=== PATIENT | female | born 2000 | race Caucasian/White ===

== ENCOUNTER → 2019-03-15 16:53 | Outpatient (BNVA) | payer BC, SELFPAY | PROVIDERS: Family Provider Family Medicine; PCP Family Medicine; Visit Provider Nurse Practitioner Family | DX: N92.0 Excessive and frequent menstruation with regular cycle (principal) | CPT/HCPCS: 81025 ==

== ENCOUNTER → 2020-03-10 10:39 | Outpatient (BNVA) | payer BC, SELFPAY | PROVIDERS: Family Provider Family Medicine; PCP Family Medicine; Visit Provider Nurse Practitioner | DX: R11.2 Nausea with vomiting, unspecified (principal); K52.9 Noninfective gastroenteritis and colitis, unspecified | CPT/HCPCS: 87400 ==

== ENCOUNTER → 2021-02-11 17:56 | Outpatient (BNVA) | payer SELFPAY | PROVIDERS: Family Provider Family Medicine; PCP Family Medicine; Visit Provider Nurse Practitioner | DX: R39.9 Unspecified symptoms and signs involving the genitourinary system (principal); R35.0 Frequency of micturition | CPT/HCPCS: 81000; 87086 ==

== ENCOUNTER → 2021-09-17 11:10 | Outpatient (BNVA) | payer OTHER, SELFPAY | PROVIDERS: Family Provider Family Medicine; PCP Family Medicine; Visit Provider Family Medicine | DX: N39.0 Urinary tract infection, site not specified (principal); B37.3 Candidiasis of vulva and vagina | CPT/HCPCS: 81000 ==

== ENCOUNTER → 2022-01-08 12:18 | Outpatient (BNVA) | payer OTHER, SELFPAY | PROVIDERS: Family Provider Family Medicine; Visit Provider Registered Nurse Neonatal Intensive Care | DX: N39.0 Urinary tract infection, site not specified (principal); R30.0 Dysuria; B37.31 Acute candidiasis of vulva and vagina; Z20.2 Contact with and (suspected) exposure to infections with a predominantly sexual mode of transmission | CPT/HCPCS: 81000; 81025; 87491; 87591; 87661 ==

== ENCOUNTER → 2022-02-22 14:34 | Outpatient (BNVA) | payer OTHER, SELFPAY | PROVIDERS: Family Provider Family Medicine; Visit Provider Nurse Practitioner Family | DX: R50.9 Fever, unspecified (principal) | CPT/HCPCS: 87400 ==

== ENCOUNTER → 2022-04-19 11:20 | Outpatient (BNVA) | payer OTHER, MEDICAID, SELFPAY | PROVIDERS: Family Provider Family Medicine; Visit Provider Nurse Practitioner Women's Health | DX: N89.8 Other specified noninflammatory disorders of vagina (principal) | CPT/HCPCS: 87481; 87512; 87798; 87799 ==

== ENCOUNTER → 2022-05-08 13:36 | Outpatient (BNVA) | payer OTHER, MEDICAID, SELFPAY | PROVIDERS: Family Provider Family Medicine; Visit Provider Nurse Practitioner Women's Health | DX: Z32.01 Encounter for pregnancy test, result positive (principal) | CPT/HCPCS: 81025; 84315 ==

== ENCOUNTER → 2022-05-15 14:45 | Outpatient (BNVA) | payer OTHER, MEDICAID, SELFPAY | PROVIDERS: Family Provider Family Medicine; Visit Provider Nurse Practitioner Women's Health | DX: Z34.90 Encounter for supervision of normal pregnancy, unspecified, unspecified trimester (principal) | CPT/HCPCS: 80307; 81000; 84443; 85027; 86592; 86762; 86803; 86850; 86900; 87086; 87340; 87806 ==

== ENCOUNTER → 2022-06-04 10:48 | Outpatient (BNVA) | payer OTHER, MEDICAID, SELFPAY | PROVIDERS: Family Provider Family Medicine; Visit Provider Obstetrics & Gynecology | DX: Z34.90 Encounter for supervision of normal pregnancy, unspecified, unspecified trimester (principal) | CPT/HCPCS: 84315; 87491; 87591; 87661 ==

== ENCOUNTER 2022-06-17 00:22 | Emergency (ER) | payer OTHER, BC, MEDICAID, SELFPAY ==
--- NOTE | 2022-06-17 00:27 | USR_ITS ---
PROCEDURE INFORMATION: Exam: US First Trimester, Transabdominal Exam date and time: 06/17/2022 12:43 AM Age: 21 years old Clinical indication: complicated by abdominal or pelvic pain; Left lower quadrant; First trimester (<14 weeks 0 days); Gestational age or lmp: 12 weeks 1 day; ; Additional info: Abd pain, cramping 12 weeks LABS AND CLINICAL REPORTS: Last menstrual period start date: 03/24/2022 Gestational age (Established): 12 w 1 d Estimated due date (Established): 12/29/2022 TECHNIQUE: Imaging protocol: Real-time transabdominal obstetrical ultrasound of the maternal pelvis and a first trimester , less than 14 weeks 0 days, with image documentation. COMPARISON: US OB <= 14 weeks fetus [facility] 05/22/2022 12:28 PM FINDINGS: GESTATION: Gestation: Intrauterine gestation is visualized. pole is visualized. No yolk sac is visualized. Embryonic/ heart rate: 147 bpm Extra-embryonic membranes/Placenta: Unremarkable. No subchorionic bleed. Amniotic fluid: Amniotic and extra-amniotic fluid are normal for gestational age. BIOMETRY: Gestational age (AUA): 12 w 0 d [place] length: 52.7 mm. EGA (CRL) is 12 w 0 d MATERNAL: Uterus: Uterus measures 9.1 cm x 8.4 cm x 6.8 cm. Cervix: Cervical length measures 3.9 cm. Right ovary/adnexa: Right ovary measures 3.8 cm x 2 cm x 2 cm. Left ovary/adnexa: Left ovary measures 3.2 cm x 2.4 cm x 2.3 cm. Intraperitoneal space: No intraperitoneal free fluid. US/US OB <= 14 weeks fetus [id number] IMPRESSION: Single live intrauterine .
[2022-06-17 00:28] VITALS: BP 121/81; PULSE 76; RESP 18; TEMP 36.6; O2SAT 99
[2022-06-17 01:04] LABS: Add Urine Microscopic? NO; Charge for UA Resulting for Rev
[2022-06-17 01:10] LABS: Bilirubin Urine Neg (Negative); Blood Urine Neg (Negative); Glucose Urine UA Norm (Normal); Ketones Urine Negative (Negative); Leukocyte Esterase Urine Negative (Negative); Nitrate Urine Negative (Negative); Protein Urine Neg (Negative); Urine Appearance Clear (CLEAR); Urine Color Yellow (Yellow); Urobilinogen Urine Norm (Negative); pH Urine 7 (5-7)
[2022-06-17 01:17] LABS: Basophils % 0.4 %; Eosinophils # 0.1 10^3/uL (0.0-0.8); Eosinophils % 1.1 %; Hematocrit 38.5 % (37.0-47.0); Hemoglobin 13.2 g/dL (11.5-15.3); Lymphocytes # 2.3 10^3/uL (0.8-4.8); Lymphocytes % 31.1 %; Mean Corpuscular HGB Conc 34.3 g/dL (30.0-36.0); Mean Corpuscular Hemoglobin 29.8 pg (28.0-34.0); Mean Corpuscular Volume 86.9 fl (81-99); Mean Platelet Volume 10.3 fL (7.4-10.4); Monocytes # 0.5 10^3/uL (0.2-0.9); Monocytes % 6.8 %; Neutrophils # 4.43 10^3/uL (1.8-7.7); Neutrophils % 60.3 %; Nucleated Red Blood Cells % 0 %; Platelet Count 232 10^3/cmm (130-400); Red Blood Count 4.43 10^6/uL (4.1-5.3); Red Cell Distribution Width 11.9 % (12.1-15.1); White Blood Count 7.3 10^3/uL (4.0-10.0)
--- NOTE | 2022-06-17 01:24 | W.ED.ABDPA2 ---
HPI - Abdominal Pain General: Chief Complaint: Abdominal Pain Stated Complaint: 13 wks pregant, abdomen pain/pressure Time Seen by Provider: 06/17/22 00:56 History of Present Illness: 21-year-old female that is approximately 12 to 13 weeks comes in today with some complaints of left pelvic discomfort. Patient denies any bleeding. Patient reports no fever or cough. This is patient's first . Patient does have a history of herpes simplex. Review of Systems General: Reports: 10 or more systems reviewed and unremarkable except in HPI and below Card: Denies: chest pain Resp: Denies: dyspnea GI: Reports: abdominal pain : Denies: vaginal bleeding Musc: Reports: back pain Skin/Breast: Denies: rash Neuro: Denies: headache(s) PFSH ED PFSH: Medical History H/O herpes genitalis (~2014) reports HSV-1 PCR positive in 2014; no outbreak since that time. No pertinent past medical history neghx:htn,dm,thyroid,dvt/pe PCP: none Surgical History No pertinent past surgical history Family History Grandmother Breast cancer maternal Denies family history of Colon cancer Ovarian cancer Diabetes Heart disease Hypertension Uterine cancer Thyroid condition Stroke Hyperchloremia Physical Exam Const: COMMON NORMALS: alert HENMT: COMMON NORMALS: normocephalic HEAD & SCALP: normocephalic Neck/C-Spine: COMMON NORMALS: full ROM Resp: COMMON NORMALS: normal respiratory effort and clear to auscultation bilaterally AUSCULTATION: clear to auscultation bilaterally Cardio: COMMON NORMALS: regular rate and regular rhythm RATE: regular rate RHYTHM: regular rhythm GI: COMMON NORMALS: Soft to palpation PALPATION: Yes Soft to palpation : COMMON NORMALS: Yes no CVA tenderness BLADDER/KIDNEY EXAM: Yes no CVA tenderness Back/Pelvis: COMMON NORMALS: no CVA tenderness Extremity: COMMON NORMALS: full ROM Neuro: SENSORIUM/ORIENTATION: Yes alert Skin: COMMON NORMALS: turgor normal GENERAL SKIN EXAM: turgor normal Course Vital Signs: Vital signs: Vital Signs Temperature 97.9 F 06/17/22 00:28 Pulse Rate 76 06/17/22 00:28 Respiratory Rate 18 06/17/22 00:28 Blood Pressure 121/81 06/17/22 00:28 Pulse Oximetry 99 06/17/22 00:28 Oxygen Delivery Me thod 06/17/22 00:28 MDM - Abdominal Pain Medical Decision Making Patient comes in today for complaints of left pelvic pain. On exam lungs were clear to auscultation abdomen soft with some mild tenderness in the left groin. No redness or inflammation is noted in the groin. Patient moves all extremities well. Vital signs are normal. Differential diagnosis includes not limited to round ligament pain, UTI, ovarian cyst, ovarian torsion. Ultrasound of the pelvis noted a heart rate of 147 with a viable at 12 weeks. Normal blood flow is noted to the ovaries. No ovarian cyst was noted. Patient was a positive. Blood count was normal. Patient is stable and was released to home with recommendations for following up with primary care. Most likely the pain is due to ligament stretching due to and standing for long periods of time. Patient works at a job that requires this. Reviewed these recommendations with patient to include risk and ice or heat. Patient reported understanding agreed to plan. Lab Data 06/17/22 01:10 06/17/22 01:10 Labs/Radiology: Radiology Impressions Ultrasound 06/17/22 00:27 IMPRESSION: Single live intrauterine . Laboratory Results WBC 7.3 10^3/uL (4.0-10.0) 06/17/22 01:10 RBC 4.43 10^6/uL (4.1-5.3) 06/17/22 01:10 Hgb 13.2 g/dL (11.5-15.3) 06/17/22 01:10 Hct 38.5 % (37.0-47.0) 06/17/22 01:10 MCV 86.9 fl (81-99) 06/17/22 01:10 MCH 29.8 pg (28.0-34.0) 06/17/22 01:10 MCHC 34.3 g/dL (30.0-36.0) 06/17/22 01:10 RDW 11.9 % (12.1-15.1) L 06/17/22 01:10 Plt Count 232 10^3/cmm (130-400) 06/17/22 01:10 MPV 10.3 fL (7.4-10.4) 06/17/22 01:10 Neut % (Auto) 60.3 % 06/17/22 01:10 Lymph % (Auto) 31.1 % 06/17/22 01:10 [place] % (Auto) 6.8 % 06/17/22 01:10 Eos % (Auto) 1.1 % 06/17/22 01:10 Baso % (Auto) 0.4 % 06/17/22 01:10 Neut # (Auto) 4.43 10^3/uL (1.8-7.7) 06/17/22 01:10 Lymph # (Auto) 2.3 10^3/uL (0.8-4.8) 06/17/22 01:10 [place] # (Auto) 0.5 10^3/uL (0.2-0.9) 06/17/22 01:10 Eos # (Auto) 0.1 10^3/uL (0.0-0.8) 06/17/22 01:10 Baso # (Auto) 0.0 10^3/uL (0.0-0.1) 06/17/22 01:10 Nucleated RBC % (auto) 0 % 06/17/22 01:10 Nucleated RBCs # 0.0 /100WBC 06/17/22 01:10 Urine Color Yellow (Yellow) 06/17/22 01:00 Urine Appearance Clear (CLEAR) 06/17/22 01:00 Urine pH 7 (5-7) 06/17/22 01:00 Ur Specific [place] 1.010 (1.005-1.030) 06/17/22 01:00 Urine Protein Neg (Negative) 06/17/22 01:00 Urine Glucose (UA) Norm (Normal) 06/17/22 01:00 Urine Ketones Negative (Negative) 06/17/22 01:00 Urine Blood Neg (Negative) 06/17/22 01:00 Urine Nitrate Negative (Negative) 06/17/22 01:00 Urine Bilirubin Neg (Negative) 06/17/22 01:00 Urine Urobilinogen Norm mg/dL (Negative) 06/17/22 01:00 Ur Leukocyte Esterase Negative (Negative) 06/17/22 01:00 Discharge Plan Discharge Condition: Stable Prescriptions: No Action Natavi PNV 13.5 mg iron- 0.5 mg-150 mg capsule PO clobetasol 0.05 % ointment 1 applic topical BID 7 Days Qty: 30 0RF Referrals: Ned Javed MD [Primary Care Provider] - Coding Level of Care Code ED Master Printer for Celena Solo
[2022-06-17 01:47] LABS: Alanine Aminotransferase 10 U/L (0-33); Albumin Level 4.1 g/dL (3.5-5.2); Alkaline Phosphatase 37 U/L (35-105); Anion Gap 16.3 (5-19); Aspartate Amino Transferase 12 U/L (0-32); Blood Urea Nitrogen 4 mg/dL (6-20); Calcium 9.2 mg/dL (8.5-10.5); Carbon Dioxide 22 mmol/L (22-29); Chloride 100 mmol/L (98-107); Globulin 3.3 g/dL (1.3-4.6); Glucose 79 mg/dL (65-115); Osmolality Calculated 276 mOsm/kg (285-295); Potassium 3.3 mmol/L (3.5-5.1); Sodium 135 mmol/L (136-145); Total Bilirubin 0.3 mg/dL (0.15-1.2); Total Protein 7.4 g/dL (6.6-8.7)
[2022-06-17 01:55] VITALS: BP 101/70; PULSE 68; RESP 16; O2SAT 100
== END 2022-06-17 01:57 | disposition home or self-care (01) ==
PROVIDERS: Emergency Provider Nurse Practitioner Family; PCP Obstetrics & Gynecology
DX: O26.891 Other specified pregnancy related conditions, first trimester (principal); R10.2 Pelvic and perineal pain; Z3A.13 13 weeks gestation of pregnancy
CPT/HCPCS: 76801; 80053; 81003; 84702; 85025; 86900; 99284

== ENCOUNTER 2022-11-05 21:15 | Outpatient (CLI) | payer OTHER, BC, SELFPAY ==
[2022-11-05 21:27] VITALS: RESP 17
[2022-11-05 21:29] VITALS: BP 128/80; PULSE 88; TEMP 36
[2022-11-05 21:31] VITALS: BMI 24.4
[2022-11-05 21:53] LABS: Bacteria Urine 1+ /hpf; Bilirubin Urine Neg (Negative); Blood Urine 3+ (Negative); Glucose Urine UA Norm (Normal); Ketones Urine Negative (Negative); Leukocyte Esterase Urine Negative (Negative); Nitrate Urine Negative (Negative); Protein Urine 3+ (Negative); RBC Urine 50-80 /hpf (0-2); Specific Gravity, Urine 1.015 (1.005-1.030); Urine Appearance SL Hazy (CLEAR); Urine Color Yellow (Yellow); Urobilinogen Urine Neg (Negative); pH Urine 6 (5-7)
[2022-11-05 21:54] LABS: Add Urine Culture? Yes
[2022-11-05 22:25] VITALS: BP 128/80; PULSE 88; RESP 15; TEMP 36
== END 2022-11-05 22:25 | disposition home or self-care (01) ==
LOC: OPOB 21:21 → OBGYN 21:26
PROVIDERS: PCP Obstetrics & Gynecology; Visit Provider Family Medicine
DX: O26.899 Other specified pregnancy related conditions, unspecified trimester (principal); R10.9 Unspecified abdominal pain; Z3A.00 Weeks of gestation of pregnancy not specified
CPT/HCPCS: 59025; 81001; 87086; 99211

== ENCOUNTER 2022-12-19 15:32 | Outpatient (CLI) | payer OTHER, MEDICAID, SELFPAY ==
[2022-12-19 15:46] VITALS: BP 124/91; PULSE 71; TEMP 35.8
[2022-12-19 15:51] VITALS: BMI 25.4
[2022-12-19 16:07] VITALS: BP 130/91; PULSE 75
[2022-12-19 16:18] LABS: Actim Prom Negative
== END 2022-12-19 16:35 | disposition home or self-care (01) ==
LOC: OPOB 15:40 → OBGYN 15:43
PROVIDERS: PCP Family Medicine; Visit Provider Family Medicine
DX: O26.899 Other specified pregnancy related conditions, unspecified trimester (principal); Z3A.00 Weeks of gestation of pregnancy not specified; N89.8 Other specified noninflammatory disorders of vagina
CPT/HCPCS: 59025; 83986; 84112; 99211

== ENCOUNTER 2022-12-24 02:30 | Inpatient (IN) | payer OTHER, MEDICAID, SELFPAY ==
[2022-12-24] VITALS (91 sets, daily range): BP systolic 100–150; BP diastolic 61–102; PULSE 62–112; RESP 15–18; TEMP 36–37; O2SAT 92–99; BMI 26.2
[2022-12-24 01:54] LABS: Actim Prom Positive
[2022-12-24 02:53] LABS: Basophils % 0.4 %; Eosinophils # 0.1 10^3/uL (0.0-0.8); Eosinophils % 0.5 %; Hematocrit 34.4 % (36-47); Lymphocytes % 20.2 %; Mean Corpuscular HGB Conc 33.4 g/dL (30-55); Mean Corpuscular Hemoglobin 30.6 pg (27-33); Mean Corpuscular Volume 91.5 fl (85-98); Monocytes # 0.9 10^3/uL (0.2-0.9); Monocytes % 8.4 %; Neutrophils # 7.06 10^3/uL (1.8-7.7); Nucleated Red Blood Cells % 0 %; Platelet Count 200 10^3/cmm (157-399); Red Blood Count 3.76 10^6/uL (3.85-5.65); Red Cell Distribution Width 13.7 % (12.1-15.1); White Blood Count 10.09 10^3/uL (3.29-11.43)
[2022-12-24] MEDS: miSOPROStol 100 mcg tablet 25 MCG VAGINAL (03:19)
--- NOTE | 2022-12-24 08:43 | PM.OPHPUD ---
Labor & Delivery H&P Update Date of Procedure: December 24, 2022 Date H&P Performed: 12/19/22 Changes to previous documentation: Spontaneous rupture of membranes. Her membranes ruptured shortly before arrival to hospital. Admission Diagnosis: 22-year-old 1 at 39 weeks estimated gestational age presenting with spontaneous rupture of membranes Other information: The patient has had an unremarkable . There have been no complications. She did have a history of herpes simplex and has been on valacyclovir for the last 3 weeks. There has been no recurrence of herpes lesions during her . Her labs have been unremarkable. Her blood type is O+. Her antibody screen is negative. She passed her glucose screen. She is rubella immune. The remainder of her infectious disease profile is within normal limits. She is GBS negative. Related Problem List Diagnoses (1) 39 weeks gestation of : (2) Rupture of membranes with clear amniotic fluid: A&P Assessment and plan (1) 39 weeks gestation of : Status: Acute (2) Rupture of membranes with clear amniotic fluid: We will initiate Cytotec x1 since she is having very few contractions. We will consider further augmentation depending on her response to Status: Acute
[2022-12-24] MEDS: lactated ringers 1,000 ML 999 ML IV ×2 (08:49→09:20)
[2022-12-24] MEDS: ROPivacaine syringe 100 MG/50 ML SYRINGE 10 MG EPIDURAL (09:19)
--- NOTE | 2022-12-24 09:47 | ANES.PREANE2 ---
Pre-Anesthetic Assessment Height/Weight: Height 1.65 m Weight 71.668 kg Temp Pulse Resp BP Pulse Ox O2 Del Method 97.2 F L 76 16 133/84 99 Room Air 12/24/22 08:48 12/24/22 09:43 12/24/22 02:27 12/24/22 09:40 12/24/22 09:43 12/24/22 06:56 Epidural Familial anesthetic complications: none Was Beta Zuri taken within 24 hours: N/A Was Clonidine taken within 24 hours: N/A Last intake: > 8 hrs Social No alcohol and No tobacco Exam alert, oriented x 3, clear to auscultation bilaterally and regular rate & rhythm Airway Mallampati: Class I Dentition: full hx primary infection w/ HSV at age 13 Anesthetic Plan ASA status: 2 Anesthesia: Regional (specify below) Risk of > 500 ml blood loss (7ml/kg in children): Yes, adequate IV access and fluids planned Medications/Allergies Home Medications Medication Instructions Recorded Confirmed Last Taken Type PNV 158-iron 13.5 mg-folic 0.5 1 cap PO DAILY 05/15/22 12/24/22 12/19/22 13:00 History mg-omega 3-dha 150 mg-epa-fish capsule (Natavi PNV) valacyclovir 500 mg tablet 500 mg PO DAILY 12/19/22 12/24/22 12/19/22 11:00 History Allergies Allergy/AdvReac Type Severity Reaction Status Date / Time buspirone [From BuSpar] Allergy ALGY-Hives Verified 12/19/22 16:42 Current Medications Generic Name Dose Route Start Last Admin Trade Name Jocelyn PRN Reason Stop Dose Admin Lactated Ringer's 1,000 mls @ 999 mls/hr 12/24/22 08:38 12/24/22 09:20 Lactated Ringers IV 999 mls/hr .Q1H1M PRN Administration See label comments Ropivacaine 100 mg in 50 mls @ 10 mls/hr 12/24/22 08:45 12/24/22 09:19 Naropin Syringe EPIDURAL 10 mls/hr .Q5H VIGNESH Administration Misoprostol 25 mcg 12/24/22 02:30 12/24/22 03:19 Misoprostol 100 Mcg Tablet VAGINAL 12/24/22 10:31 25 mcg Q4H VIGNESH Administration PFSH Anesthesia Medical History H/O herpes genitalis (~2014) reports HSV-1 PCR positive in 2014; no outbreak since that time. No pertinent past medical history neghx:htn,dm,thyroid,dvt/pe PCP: none Surgical History No pertinent past surgical history Family History Grandmother Breast cancer maternal Denies family history of Colon cancer Ovarian cancer Diabetes Heart disease Hypertension Uterine cancer Thyroid condition Stroke Hyperchloremia Female Reproductive History : 1 Data Anesthesia 12/24/22 02:33 Short CBC 12/24/22 Range/Units 02:33 WBC 10.09 (3.29-11.43) 10^3/uL Hgb 11.50 (11.27-16.99) g/dL Hct 34.4 L (36-47) % MCV 91.5 (85-98) fl Plt Count 200 (157-399) 10^3/cmm Neut % (Auto) 70.0 % Neut # (Auto) 7.06 (1.8-7.7) 10^3/uL Blood Bank 12/24/22 02:33 Blood Type O Positive Rho(D) Type Positive Antibody Screen Negative Cardiac Studies: No Data to Display
--- NOTE | 2022-12-24 09:49 | ANES.PROC ---
Anesthesia Procedures Procedure/Date: 12/24/22 Epidural: Time Out Performed: Yes Consents Signed: Procedure Consent Consent: requested by attending/covering physician, from patient, from other, risks and benefits reviewed and patient agrees to proceed Lumbar Level: L3-L4 Epidural position: sitting Epidural procedure: sterile prep of area, 1% lidocaine to numb the area, 18 g needle, negative for paresthesia passed, neg for paresthesia, test dose given, 1.5% xylocaine 1:200k epi, 0.2% Ropivacaine bolus ml (5), placed PCEA, no systemic response, sterile dressing applied, L.U.D. no apparent complications and 0.2% Ropiavacaine @ mls/hr (10) Additional Comments: BIANKA at 5.5 cm, threaded to 11.5 cm. Patient reported tingling feet and decreased pain of subsequent contraction, but not pain free. Encouraged bolus use of epidural pump until fully comfortable
[2022-12-24] MEDS: ondansetron 2 mg/ML SDV 2 mL 4 MG IVP (10:06)
[2022-12-24] MEDS: miSOPROStol 100 mcg tablet 25 MCG SUBLINGUAL (10:44)
[2022-12-24] MEDS: dextrose 5%-lactated ringers 1,000 ML 125 ML IV (11:41)
[2022-12-24] MEDS: ROPivacaine syringe 100 MG/50 ML SYRINGE 13 MG EPIDURAL ×2 (12:19→15:33)
--- NOTE | 2022-12-24 16:39 | PM.DELIVERY ---
Delivery Note: Date of delivery: December 24, 2022 Pre-delivery diagnoses: 22-year-old 1 at 39 weeks estimated gestational age with spontaneous rupture membranes Post-delivery diagnoses: Status post spontaneous vaginal delivery Procedure: Spontaneous vaginal delivery Delivering Physician: Ruy Leggett Estimated blood loss (mL): 50 Pre-Delivery Course: The patient presented to the hospital with spontaneous rupture membranes. She was found to be actin PROM positive. Rupture membranes occurred just prior to arriving at the hospital. She was given Cytotec 25 mcg x 1. An epidural was placed. An amniotomy was performed to address the forebag that was noted. She progressed to complete without difficulty. Delivery: DELIVERY: The patient progressed to complete without difficulty. She delivered a male with a weight of 7 pounds 5 ounces with Apgars of 9, 10. The baby was delivered from the JUDIT position and placed on the mother's abdomen. The cord was then clamped and cut. There was a nuchal cord x1 which the baby was delivered through.. There was no meconium. The placenta and 3 vessel cord were delivered intact shortly thereafter. The perineum and vaginal vault were carefully examined. Several superficial vaginal wall lacerations were noted which did not require repair. Both the mother and the baby were in stable condition. Post-Delivery Status: Good History History History 1 Term 0 Miscarriages/Ectopic Living Children A&P Assessment and plan (1) 39 weeks gestation of : (2) Spontaneous vaginal delivery: I anticipate routine care. Coding Level of Care Code Acute Code for Chg Fwd Diagnoses 39 weeks gestation of Z3A.39 Spontaneous vaginal delivery O80
[2022-12-24] MEDS: oxytocin 30 UNIT/500 ML BAG 999 UNIT IV (17:17)
[2022-12-24] MEDS: docusate sodium 100 mg Capsule PO (17:19)
[2022-12-24] MEDS: ibuprofen 800 mg tablet PO (21:07)
[2022-12-25] VITALS (7 sets, daily range): BP systolic 115–121; BP diastolic 66–86; PULSE 65–73; RESP 15–17; TEMP 36.4–37.1; O2SAT 96–97
[2022-12-25] MEDS: HYDROcodone-acetaminophen 5-325 mg Tablet PO (00:21)
[2022-12-25 05:00] LABS: Mean Corpuscular HGB Conc 33.2 g/dL (30-55); Mean Corpuscular Hemoglobin 30.5 pg (27-33); Mean Corpuscular Volume 91.7 fl (85-98); Mean Platelet Volume 10.4 fL (7.4-10.4); Platelet Count 164 10^3/cmm (157-399); Red Blood Count 3.38 10^6/uL (3.85-5.65); Red Cell Distribution Width 13.8 % (12.1-15.1); White Blood Count 12.34 10^3/uL (3.29-11.43)
--- NOTE | 2022-12-25 08:00 | ANE.PACU2 ---
Inpatient post-anesthesia follow up: Airway intact: Yes Vital signs: Temperature 98.7 F Pulse Rate 70 Respiratory Rate 17 Blood Pressure 116/86 Pulse Oximetry 97 Oxygen Delivery Me thod Room Air Oxygen Flow Rate Fraction of Inspir ed Oxygen Hydration adequate: Yes Nausea and vomiting: No Pain level: 1 Mental status: Baseline
--- NOTE | 2022-12-25 08:08 | PM.OBGYDC ---
Discharge Providers PHYSICIAN INTERVENTIONAL CARDIOLOGIST Date of Admission: 12/24/22 02:30 Date of Discharge: 12/25/22 Attending Provider at Admission: Ruy Leggett MD Attending Provider at Discharge: Ruy Leggett MD Primary Care Provider: Ruy Leggett MD Diagnoses at Discharge Discharge Diagnosis (1) 39 weeks gestation of : Status: Acute (2) Spontaneous vaginal delivery: Status: Acute Reason for Visit Reason for Visit: leaking of fluid and contractions Hospital Course Hospital Course The patient arrived to the hospital with spontaneous rupture membranes. Her labor was augmented with Cytotec. Her delivery was unremarkable. She had several first-degree tears that did not require repair. Her course was unremarkable. Her bleeding was within normal limits. Her pain was well controlled. She breast-fed well. Information Peripartum Data: Delivery Method: Vaginal Physical Exam Narrative: The patient is alert. She appears comfortable. Her heart has a regular rate and rhythm with no murmurs appreciated. Lungs are clear to auscultation bilaterally. Her fundus is firm and below the umbilicus. Urinary Catheter Management: Campbell: Cath Placed During This Visit: yes Urinary Catheter Date of Insertion: 12/24/22 Urinary Catheter Time of Insertion: 10:00 History History History 1 Term 0 Miscarriages/Ectopic Living Children Discharge Data Studies Completed and Pending Laboratory Results WBC 12.34 10^3/uL (3.29-11.43) H 12/25/22 04:44 RBC 3.38 10^6/uL (3.85-5.65) L 12/25/22 04:44 Hgb 10.30 g/dL (11.27-16.99) L 12/25/22 04:44 Hct 31.0 % (36-47) L 12/25/22 04:44 MCV 91.7 fl (85-98) 12/25/22 04:44 MCH 30.5 pg (27-33) 12/25/22 04:44 MCHC 33.2 g/dL (30-55) 12/25/22 04:44 RDW 13.8 % (12.1-15.1) 12/25/22 04:44 Plt Count 164 10^3/cmm (157-399) 12/25/22 04:44 MPV 10.4 fL (7.4-10.4) 12/25/22 04:44 Neut % (Auto) 70.0 % 12/24/22 02:33 Lymph % (Auto) 20.2 % 12/24/22 02:33 [place] % (Auto) 8.4 % 12/24/22 02:33 Eos % (Auto) 0.5 % 12/24/22 02:33 Baso % (Auto) 0.4 % 12/24/22 02:33 Neut # (Auto) 7.06 10^3/uL (1.8-7.7) 12/24/22 02:33 Lymph # (Auto) 2.0 10^3/uL (0.8-4.8) 12/24/22 02:33 [place] # (Auto) 0.9 10^3/uL (0.2-0.9) 12/24/22 02:33 Eos # (Auto) 0.1 10^3/uL (0.0-0.8) 12/24/22 02:33 Baso # (Auto) 0.0 10^3/uL (0.0-0.1) 12/24/22 02:33 Nucleated RBC % (auto) 0 % 12/24/22 02:33 Nucleated RBCs # 0.0 /100WBC 12/24/22 02:33 Insulin-like GF I Positive 12/24/22 01:40 Blood Type O Positive 12/24/22 02:33 Rho(D) Type Positive 12/24/22 02:33 Antibody Screen Negative 12/24/22 02:33 Vitals Last Vital Signs Temp 97.9 F 12/25/22 06:34 Pulse 71 12/25/22 06:34 Resp 15 12/25/22 06:34 BP 115/71 12/25/22 06:34 Pulse Ox 97 12/25/22 06:34 O2 Del Method Room Air 12/25/22 06:34 Results Labs OB ([facility]): Obstetrics US 05/22/22 Blood Type O Positive 12/24/22 Antibody Screen Negative 12/24/22 Hct 31.0 % (36-47) L 12/25/22 Hgb 10.30 g/dL (11.27-16.99) L 12/25/22 Rho(D) Type Positive 12/24/22 Plt Count 164 10^3/cmm (157-399) 12/25/22 Hep Bs Antigen Non-reactive (Nonreactive) 05/15/22 Hepatitis C Antibody Non-reactive (Nonreactive) 05/15/22 Rubella IgG Antibody 136.3 IU/mL (0.0-10.0) H 05/15/22 TSH 0.87 uIU/mL (0.27-4.20) 05/15/22 Cystic Fibrosis Screen Negative 06/04/22 Urine Protein 3+ (Negative) H 11/05/22 Urine Glucose (UA) Norm (Normal) 11/05/22 Discharge Plan Discharge Patient Disposition: Home Condition: Stable Prescriptions: New ibuprofen 800 mg Tablet 800 mg PO TID Qty: 45 0RF Continued Natavi PNV 13.5 mg iron- 0.5 mg-150 mg capsule 1 cap PO DAILY Discontinued valacyclovir 500 mg Tablet 500 mg PO DAILY Discharge Orders: Discharge Order (Routine); Ordered 12/25/22 Ordered By: Ruy Leggett Referrals: Ruy Leggett MD [Primary Care Provider] - 6 Weeks Discharge Diet: Usual diet Discharge Activity: Limit activity as instructed Patient Instructions: Depression (DC), Preeclampsia and Eclampsia After Delivery (GEN), Hemorrhage (DC), OB Discharge Report, OB Food/Drug Interaction Guide, Opioid Safety, OB Home Care, OB Vaginal Deliveries, Abnormal Bleeding Discharge Attestations PHYSICIAN INTERVENTIONAL CARDIOLOGIST Time Spent in Discharge Care*: less than 30 min Coding Level of Care Code Acute Code for Chg Fwd Diagnoses 39 weeks gestation of Z3A.39 Spontaneous vaginal delivery O80
[2022-12-25] MEDS: docusate sodium 100 mg Capsule PO (09:36)
[2022-12-25] MEDS: ibuprofen 800 mg tablet PO ×2 (09:36→16:31)
[2022-12-25] MEDS: prenatal vitamin Capsule 1 CAP PO (09:36)
== END 2022-12-25 19:05 | disposition home or self-care (01) | DRG 807 ==
LOC: OPOB 02:32 → OBGYN 02:32
PROVIDERS: Admitting Provider Family Medicine; PCP Family Medicine; Visit Provider Family Medicine
DX: O69.2XX0 Labor and delivery complicated by other cord entanglement, with compression, not applicable or unspecified (principal); Z37.0 Single live birth; Z3A.39 39 weeks gestation of pregnancy
CPT/HCPCS: 36415; 51702; 59025; 59409; 83986; 84112; 85025; 85027; 86850; 86900; 96374; 99211; J2405; J2590; J2795; J7120; J7121

== ENCOUNTER 2023-06-13 09:38 | Emergency (ER) | payer OTHER, MEDICAID, SELFPAY ==
[2023-06-13 09:59] VITALS: BP 117/82; PULSE 97; RESP 18; TEMP 36.7; O2SAT 99; BMI 24.9
[2023-06-13 10:33] LABS: Basophils % 0.4 %; Eosinophils # 0.1 10^3/uL (0.0-0.8); Eosinophils % 2.1 %; Hematocrit 38.1 % (36-47); Lymphocytes # 1.9 10^3/uL (0.8-4.8); Lymphocytes % 32.7 %; Mean Corpuscular HGB Conc 33.6 g/dL (30-55); Mean Corpuscular Hemoglobin 29.4 pg (27-33); Mean Corpuscular Volume 87.4 fl (85-98); Mean Platelet Volume 9.3 fL (7.4-10.4); Monocytes # 0.6 10^3/uL (0.2-0.9); Monocytes % 11.2 %; Neutrophils # 3.04 10^3/uL (1.8-7.7); Neutrophils % 53.2 %; Nucleated Red Blood Cells % 0 %; Platelet Count 249 10^3/cmm (157-399); Red Blood Count 4.36 10^6/uL (3.85-5.65); Red Cell Distribution Width 12.7 % (12.1-15.1); White Blood Count 5.71 10^3/uL (3.29-11.43)
[2023-06-13 10:45] LABS: HCG, Serum Qual Negative (Negative)
[2023-06-13 10:50] LABS: Alanine Aminotransferase 26 U/L (0-33); Albumin Level 3.8 g/dL (3.5-5.2); Alkaline Phosphatase 80 U/L (35-105); Anion Gap 14.7 (5-19); Aspartate Amino Transferase 19 U/L (0-32); Blood Urea Nitrogen 11 mg/dL (6-20); Calcium 8.8 mg/dL (8.5-10.5); Carbon Dioxide 21 mmol/L (22-29); Chloride 104 mmol/L (98-107); Creatinine Clr Calc Pharmacy 136.1185; Globulin 3.1 g/dL (1.3-4.6); Glomerular Filtration Rate 123.9 mL/min (90-130); Glucose 86 mg/dL (65-115); Lipase 16 U/L (13-60); Osmolality Calculated 281 mOsm/kg (285-295); Potassium 3.7 mmol/L (3.5-5.1); Sodium 136 mmol/L (136-145); Total Bilirubin 0.2 mg/dL (0.15-1.2); Total Protein 6.9 g/dL (6.6-8.7)
--- NOTE | 2023-06-13 11:33 | ED_ITS ---
HPI - Abdominal Pain 2 General: Chief Complaint: Abdominal Pain Stated Complaint: abd pain Time Seen by Provider: 06/13/23 10:44 History of Present Illness: 22-year-old female comes in today for co mplaints of nausea with loose stools since Friday. Patient also reports some abdominal cramping. Patient denies any problems urinating. Patient appears nontoxic. Patient appears in no pain. Associated Symptoms: Reports diarrhea and nausea Review of Systems 2 General: Reports: 10 or more systems reviewed and unremarkable except in HPI and below GI: Reports: abdominal pain (Cramping), nausea and diarrhea PFSH ED 2 PFSH: Medical History H/O herpes genitalis (~2014) reports HSV-1 PCR positive in 2014; no outbreak since that time. No pertinent past medical history neghx:htn,dm,thyroid,dvt/pe PCP: none Surgical History No pertinent past surgical history Family History Grandmother Breast cancer maternal Denies family history of Colon cancer Ovarian cancer Diabetes Heart disease Hypertension Uterine cancer Thyroid condition Stroke Hyperchloremia Physical Exam 2 Const: COMMON NORMALS: alert HENMT: COMMON NORMALS: normocephalic HEAD & SCALP: normocephalic Neck/C-Spine: COMMON NORMALS: full ROM Resp: COMMON NORMALS: normal respiratory effort and clear to auscultation bilaterally AUSCULTATION: clear to auscultation bilaterally Cardio: COMMON NORMALS: regular rate and regular rhythm RATE: regular rate RHYTHM: regular rhythm GI: COMMON NORMALS: Soft to palpation AUSCULTATION: Yes normoactive bowel sounds PALPATION: Yes Soft to palpation, No Guarding due to palpation present (GI) and No Rebound tenderness present : COMMON NORMALS: Yes no CVA tenderness BLADDER/KIDNEY EXAM: Yes no CVA tenderness Back/Pelvis: COMMON NORMALS: no CVA tenderness and thoracic and lumbar spine normal to inspection Extremity: COMMON NORMALS: normal to inspection and no pedal edema Neuro: SENSORIUM/ORIENTATION: Yes alert Skin: COMMON NORMALS: turgor normal GENERAL SKIN EXAM: turgor normal Course 2 Vital Signs: Vital signs: Vital Signs Temperature 98.1 F 06/13/23 09:59 Pulse Rate 97 06/13/23 09:59 Respiratory Rate 18 06/13/23 09:59 Blood Pressure 117/82 06/13/23 09:59 Pulse Oximetry 99 06/13/23 09:59 Oxygen Delivery Me thod Room Air 06/13/23 09:59 MDM - Abdominal Pain Medical Decision Making 22-year-old female comes in today with generalized abdominal pain. Patient reports nausea without vomiting. On exam abdomen soft with no localized or rebound tenderness. No guarding is noted. Patient moves all extremities well. No edema. Vital signs are normal. Differential diagnosis includes but not limited to gastroenteritis, gallbladder disease, pancreatitis, colitis/enteritis, viral syndrome. CBC CMP were normal. hCG was negative. Lipase was normal. No signs of gallbladder disease was noted. No signs of severe illness was noted. Reviewed exam with patient with recommendations for treatment with fluids, dicyclomine for cramping, and follow-up with primary care for persistent symptoms. Patient should return to ER for worsening symptoms described as high temperature, blood in vomit or stool, or new concerns. Lab Data 06/13/23 10:27 06/13/23 10:27 Labs/Radiology: Laboratory Results WBC 5.71 10^3/uL (3.29-11.43) 06/13/23 10:27 RBC 4.36 10^6/uL (3.85-5.65) 06/13/23 10:27 Hgb 12.80 g/dL (11.27-16.99) 06/13/23 10:27 Hct 38.1 % (36-47) 06/13/23 10:27 MCV 87.4 fl (85-98) 06/13/23 10:27 MCH 29.4 pg (27-33) 06/13/23 10:27 MCHC 33.6 g/dL (30-55) 06/13/23 10:27 RDW 12.7 % (12.1-15.1) 06/13/23 10:27 Plt Count 249 10^3/cmm (157-399) 06/13/23 10:27 MPV 9.3 fL (7.4-10.4) 06/13/23 10:27 Neut % (Auto) 53.2 % 06/13/23 10:27 Lymph % (Auto) 32.7 % 06/13/23 10:27 Bryan % (Auto) 11.2 % 06/13/23 10: Eos % (Auto) 2.1 % 06/13/23 10: Baso % (Auto) 0.4 % 06/13/23 10: Neut # (Auto) 3.04 10^3/uL (1.8-7.7) 06/13/23 10: Lymph # (Auto) 1.9 10^3/uL (0.8-4.8) 06/13/23 10: Bryan # (Auto) 0.6 10^3/uL (0.2-0.9) 06/13/23 10: Eos # (Auto) 0.1 10^3/uL (0.0-0.8) 06/13/23 10: Baso # (Auto) 0.0 10^3/uL (0.0-0.1) 06/13/23 10: Nucleated RBC % (auto) 0 % 06/13/23 10: Nucleated RBCs # 0.0 /100WBC 06/13/23 10:27 Sodium 136 mmol/L (136-145) 06/13/23 10: Potassium 3.7 mmol/L (3.5-5.1) 06/13/23 10: Chloride 104 mmol/L (98-107) 06/13/23 10: Carbon Dioxide 21 mmol/L (22-29) L 06/13/23 10: Anion Gap 14.7 (5-19) 06/13/23 10: BUN 11 mg/dL (6-20) 06/13/23 10: Creatinine 0.6 mg/dL (0.5-0.9) 06/13/23 10:27 GFR Calculation 123.9 mL/min (90-130) 06/13/23 10: Glucose 86 mg/dL (65-115) 06/13/23 10: Calculated Osmolality 281 mOsm/kg (285-295) L 06/13/23 10: Calcium 8.8 mg/dL (8.5-10.5) 06/13/23 10: Total Bilirubin 0.2 mg/dL (0.15-1.2) 04/05/24 10:27 AST 19 U/L (0-32) 06/13/23 10:27 ALT 26 U/L (0-33) 06/13/23 10:27 Alkaline Phosphatase 80 U/L (35-105) 06/13/23 10:27 Total Protein 6.9 g/dL (6.6-8.7) 06/13/23 10:27 Albumin 3.8 g/dL (3.5-5.2) 06/13/23 10:27 Globulin 3.1 g/dL (1.3-4.6) 06/13/23 10:27 Lipase 16 U/L (13-60) 06/13/23 10:27 HCG, Qual Negative (Negative) 06/13/23 10:27 No radiology studies performed this visit Discharge Plan Discharge Patient Disposition: Home Clinical Impression: Viral syndrome Abdominal pain Qualifiers: Abdominal location: generalized Qualified Code(s): R10.84 - Generalized abdominal pain Diarrhea Qualifiers: Diarrhea type: unspecified type Qualified Code(s): R19.7 - Diarrhea, unspecified Condition: Stable Prescriptions: New dicyclomine 20 mg tablet 20 mg PO QID PRN (Reason: abdominal pain) Qty: 20 0RF No Action Natavi PNV 13.5 mg iron- 0.5 mg-150 mg capsule 1 cap PO DAILY ibuprofen 800 mg Tablet 800 mg PO TID Qty: 45 0RF Discharge Orders: Discharge ED (Routine); Ordered 06/13/23 Ordered By: Javon Lindo Referrals: Ruy Leggett MD [Primary Care Provider] - Discharge Diet: Advance as tolerated Discharge Activity: Resume usual activity Patient Instructions: Abdominal Pain (ED) Activity Restrictions/Additional Instructions: Drink plenty of fluids. Drink an electrolyte solution to help replace electrolytes after loose and diarrhea stools. Try to eat a diet that is not too acidic or too spicy until return to normal. Follow-up with primary care in 3 to 5 days for recheck. Return to ED for inability to hold fluids down, fever greater than 100.4, blood in vomit or stool. Coding Level of Care Code ED [facility] for Celena Solo
[2023-06-13 12:14] VITALS: BP 118/80; PULSE 95; RESP 16; TEMP 36.7; O2SAT 100
[2023-06-13 13:04] LABS: Add Urine Microscopic? YES; Bilirubin Urine Neg (Negative); Blood Urine Neg (Negative); Glucose Urine UA Norm (Normal); Ketones Urine Negative (Negative); Leukocyte Esterase Urine Negative (Negative); Nitrate Urine Negative (Negative); Protein Urine Neg (Negative); Specific Gravity, Urine 1.025 (1.005-1.030); Urine Appearance SL Hazy (CLEAR); Urine Color Yellow (Yellow); Urobilinogen Urine Norm (Negative); pH Urine 5 (5-7)
[2023-06-13 13:05] LABS: Add Urine Culture? No; Bacteria Urine 2+ /hpf; WBC Urine RARE /hpf (0-5)
== END 2023-06-13 12:15 | disposition home or self-care (01) ==
PROVIDERS: Emergency Provider Nurse Practitioner Family; PCP Family Medicine
DX: R10.84 Generalized abdominal pain (principal); B34.9 Viral infection, unspecified; R19.7 Diarrhea, unspecified
CPT/HCPCS: 36415; 80053; 81001; 83690; 84703; 85025; 99283